=== PATIENT | female | born 1945 | race Caucasian/White ===

== ENCOUNTER 2017-01-06 07:00 | Day surgery (SDC) | payer OTHER, BC ==
[2017-01-03 11:07] VITALS: BMI 22.3
[2017-01-06] MEDS ORDERED: PROPOFOL 20 ML ONE ×4 (07:53)
[2017-01-06] MEDS ORDERED: SUCCINYLCHOLINE CHLORIDE 200 MG/10 ML VIAL ONE (07:53)
[2017-01-06] MEDS ORDERED: LIDOCAINE HCL/PF 2% SDV 5ML VIAL ONE (07:53)
[2017-01-06] MEDS ORDERED: GLYCOPYRROLATE 0.2 MG/1 ML VIAL ONE (07:53)
[2017-01-06 08:40] VITALS: TEMP 98.2
[2017-01-06 09:31] VITALS: BP 106/52; PULSE 66
== END 2017-01-06 09:31 | disposition home or self-care (01) ==
LOC: JASU-ENDO 07:00
PROVIDERS: ATTEND Internal Medicine Gastroenterology
PROC: 0DJD8ZZ Inspection of Lower Intestinal Tract, Via Natural or Artificial Opening Endoscopic (ICD-10-PCS; principal; 2017-01-06 08:00)
DX: Z12.11 Encounter for screening for malignant neoplasm of colon (principal); Z80.0 Family history of malignant neoplasm of digestive organs; K57.30 Diverticulosis of large intestine without perforation or abscess without bleeding

== ENCOUNTER 2022-07-15 04:39 | Day surgery (SDC) | payer OTHER, BC ==
[2022-07-12 11:23] VITALS: BMI 21.9
[2022-07-15 09:18] VITALS: TEMP 98.7
[2022-07-15 10:34] VITALS: BP 111/61; PULSE 73; RESP 15
== END 2022-07-15 10:22 | disposition home or self-care (01) ==
LOC: JASU-ENDO 04:39
PROVIDERS: ATTEND Internal Medicine Gastroenterology
PROC: 0DJD8ZZ Inspection of Lower Intestinal Tract, Via Natural or Artificial Opening Endoscopic (ICD-10-PCS; principal; 2022-07-15 09:00)
DX: Z12.11 Encounter for screening for malignant neoplasm of colon (principal); K64.8 Other hemorrhoids; K57.30 Diverticulosis of large intestine without perforation or abscess without bleeding; Z86.010 Personal history of colon polyps; Z80.0 Family history of malignant neoplasm of digestive organs

== ENCOUNTER 2024-05-13 22:41 | Emergency (ER) | payer OTHER, BC ==
[2024-05-13 22:50] VITALS: TEMP 97.7; BMI 21.5
[2024-05-14] MEDS ORDERED: METOCLOPRAMIDE HCL INJECTION 10 MG/2 ML VIAL ONE (01:07)
[2024-05-14] MEDS: SODIUM CHLORIDE 0.9% 500 ML INFUS.BAG IV ONE (01:13)
[2024-05-14] MEDS: METOCLOPRAMIDE HCL INJECTION 10 MG/2 ML VIAL IVPUSH ONE (01:14)
[2024-05-14 01:20] LABS: BASO % 0.2 % (0-2.0); EOS % 0.3 % (0-4.5); HEMATOCRIT 36.2 % (32.4-45.2); HEMOGLOBIN 12.3 GM/dL (10.7-15.3); LYMPH % 9.3 % (8-40); MCH 30.7 pg (25.7-33.7); MCHC 33.9 g/dl (32.0-36.0); MEAN CELL VOLUME 90.7 fl (80-96); MEAN PLT VOLUME 8.6 fl (7.5-11.1); MONO % 5.5 % (3.8-10.2); NEUT % 84.7 % (42.8-82.8); PLATELET COUNT 211 10^3/uL (134-434); RDW 13.3 % (11.6-15.6); WHITE BLOOD COUNT 9.8 K/mm3 (4.0-10.0)
[2024-05-14 01:27] LABS: INR 1.55 (0.83-1.09); PROTHROMBIN TIME (PATIENT) 16.9 SEC (9.7-13.0)
[2024-05-14 01:30] LABS: ACTIVATED PTT 28.6 SECONDS (25.2-36.5)
[2024-05-14 01:54] LABS: CALCIUM 9.1 mg/dL (8.5-10.1)
[2024-05-14 01:55] LABS: ALBUMIN 3.5 g/dl (3.4-5.0); BLOOD UREA NITROGEN 14.7 mg/dL (7-18)
[2024-05-14 01:58] LABS: CREATININE 0.7 mg/dL (0.55-1.3)
[2024-05-14 01:59] LABS: BILIRUBIN,TOTAL 0.4 mg/dL (0.2-1); TOT PROT 6.6 g/dl (6.4-8.2)
[2024-05-14 03:34] VITALS: BP 133/78; PULSE 106; RESP 17
== END 2024-05-14 04:55 | disposition home or self-care (01) ==
LOC: JER 22:41
PROC: 3E033GC Introduction of Other Therapeutic Substance into Peripheral Vein, Percutaneous Approach (ICD-10-PCS; principal; 2024-05-14)
DX: R42 Dizziness and giddiness (principal); R11.2 Nausea with vomiting, unspecified
CPT/HCPCS: 36415; 70450-TC; 80053; 83735; 84443; 84484; 85025; 85610; 85730; 93005; 93010; 99285-25

== ENCOUNTER 2024-05-24 10:27 | Emergency (ER) | payer OTHER, BC ==
[2024-05-24 10:40] VITALS: PULSE 86; BMI 21.4
[2024-05-24] MEDS ORDERED: ACETAMINOPHEN INJECTION 100 ML ONE (12:24)
[2024-05-24 12:25] LABS: BASO % 0.4 % (0-2.0); EOS % 2.1 % (0-4.5); HEMATOCRIT 33.4 % (32.4-45.2); MCH 30.5 pg (25.7-33.7); MCHC 32.9 g/dl (32.0-36.0); MEAN CELL VOLUME 92.6 fl (80-96); MEAN PLT VOLUME 8.8 fl (7.5-11.1); MONO % 9.6 % (3.8-10.2); NEUT % 68.9 % (42.8-82.8); PLATELET COUNT 216 10^3/uL (134-434); RBC 3.61 M/mm3 (3.60-5.2); RDW 13.1 % (11.6-15.6); WHITE BLOOD COUNT 7.1 K/mm3 (4.0-10.0)
[2024-05-24 12:32] LABS: INR 1.04 (0.83-1.09); PROTHROMBIN TIME (PATIENT) 11.4 SEC (9.7-13.0)
[2024-05-24] MEDS: SODIUM CHLORIDE 0.9% 500 ML INFUS.BAG IV ONE (12:32)
[2024-05-24] MEDS: ACETAMINOPHEN 1000 MG/100 ML BAG IVPB ONE (12:32)
[2024-05-24 12:35] LABS: ACTIVATED PTT 27.5 SECONDS (25.2-36.5)
[2024-05-24 12:45] LABS: CALCIUM 9.2 mg/dL (8.5-10.1)
[2024-05-24 12:46] LABS: ALBUMIN 3.2 g/dl (3.4-5.0); BLOOD UREA NITROGEN 11.9 mg/dL (7-18)
[2024-05-24 12:49] LABS: CREATININE 0.7 mg/dL (0.55-1.3)
[2024-05-24 12:51] LABS: BILIRUBIN,TOTAL 0.5 mg/dL (0.2-1); TOT PROT 6.2 g/dl (6.4-8.2)
[2024-05-24 14:13] LABS: HIV INTERPRETATION NEGATIVE (NEGATIVE)
[2024-05-24 14:31] LABS: EPI CELLS 3 /uL (0-25.1); HYALINE CASTS 0 /uL (0-3.1); PH,URINE 5.5 (5.0-8.0); URINE APPEARANCE CLEAR; URINE BACTERIA 2 /uL (0-1359); URINE BILIRUBIN NEGATIVE (NEGATIVE); URINE COLOR YELLOW; URINE GLUCOSE (UA) NEGATIVE (NEGATIVE); URINE KETONE NEGATIVE (NEGATIVE); URINE LEUK ESTERASE TRACE (NEGATIVE); URINE NITRITE NEGATIVE (NEGATIVE); URINE PROTEIN NEGATIVE (NEGATIVE); URINE RBC 7 /uL (0-23.9); URINE UROBILINOGEN 0.2 mg/dL (0.2-1.0); URINE WBC 13 /uL (0-25.8)
[2024-05-24] MEDS ORDERED: metroNIDAZOLE 250 MG TABLET ONE (18:26)
[2024-05-24] MEDS: metroNIDAZOLE 250 MG TABLET PO ONE (18:57)
[2024-05-24] MEDS: CIPROFLOXACIN 400 MG/D5W 400 MG/200 ML IVPB IVPB ONE (19:25)
[2024-05-24 19:54] VITALS: BP 144/85; RESP 14; TEMP 98.1
[2024-05-24] MEDS ORDERED: CIPROFLOXACIN 500 MG TABLET (RESTRICTED TO ID) PO ONE (20:47)
[2024-05-24] MEDS ORDERED: metroNIDAZOLE 500 MG TABLET PO ONE (20:47)
== END 2024-05-24 21:23 | disposition home or self-care (01) ==
LOC: JER 10:27
PROC: 3E03329 Introduction of Other Anti-infective into Peripheral Vein, Percutaneous Approach (ICD-10-PCS; principal; 2024-05-24)
PROC: 3E033NZ Introduction of Analgesics, Hypnotics, Sedatives into Peripheral Vein, Percutaneous Approach (ICD-10-PCS; 2024-05-24)
DX: K57.32 Diverticulitis of large intestine without perforation or abscess without bleeding (principal); R10.32 Left lower quadrant pain
CPT/HCPCS: 36415; 74177-TC; 80053; 81003; 83605; 83690; 85025; 85610; 85730; 86803; 86850; 86900; 86901; 87086; 87389; 93005; 93010; 96365; 96375; 99285-25; J0131

== ENCOUNTER 2024-08-02 06:31 | Day surgery (SDC) | payer OTHER, BC ==
[2024-07-29 12:07] VITALS: BMI 21.4
[2024-08-02 08:30] VITALS: TEMP 98.5
[2024-08-02 09:07] VITALS: BP 125/70; PULSE 88; RESP 19
== END 2024-08-02 09:07 | disposition home or self-care (01) ==
LOC: JASU-ENDO 06:31
PROVIDERS: ATTEND Internal Medicine Gastroenterology
PROC: 0DBN8ZX Excision of Sigmoid Colon, Via Natural or Artificial Opening Endoscopic, Diagnostic (ICD-10-PCS; principal; 2024-08-02 08:00)
DX: Z12.11 Encounter for screening for malignant neoplasm of colon (principal); R93.3 Abnormal findings on diagnostic imaging of other parts of digestive tract; D12.5 Benign neoplasm of sigmoid colon; K57.30 Diverticulosis of large intestine without perforation or abscess without bleeding; K64.8 Other hemorrhoids; K63.89 Other specified diseases of intestine
CPT/HCPCS: 88305-TC